=== PATIENT | male | born 1960 | race Hispanic/Latino ===

== ENCOUNTER → 2017-10-27 | Day surgery (SDC) | payer OTHER ==
[2017-10-26 10:56] LABS: BASOPHILS % 0.3 % (0.0-1.0); EOSINOPHILS # (AUTO) 0.1 (0.0-0.4); EOSINOPHILS % 0.5 % (0.0-6.0); HEMATOCRIT 38.7 % (38.2-49.6); HEMOGLOBIN 12.8 g/dL (14.0-18.0); LYMPHOCYTES % 19.6 % (18.0-39.1); MEAN CORPUSCULAR HEMOGLOBIN 31.3 pg (28-32); MEAN CORPUSCULAR HGB CONC 33.1 g/dL (31-35); MEAN CORPUSCULAR VOLUME 94.6 fL (81-99); MONOCYTES # (AUTO) 0.8 (0.2-0.8); MONOCYTES % 5.3 % (4.4-11.3); NEUTROPHILS # (AUTO) 11.1 (2.1-6.9); NEUTROPHILS % 73.1 % (38.7-80.0); PLATELET COUNT 209 x10e3/uL (140-360); RED BLOOD COUNT 4.09 x10e6/uL (4.3-5.7); RED CELL DISTRIBUTION WIDTH 13.7 % (11.7-14.4)
[2017-10-26 11:19] LABS: ALBUMIN 3.3 g/dL (3.5-5.0); ALBUMIN/GLOBULIN RATIO 0.8 (0.8-2.0); ANION GAP 16.7 mmol/L (8-16); CALCIUM 9.3 mg/dL (8.4-10.2); CHOL/HDL RATIO 6.6 (3.9-4.7); CREATININE, SERUM 2.27 mg/dL (0.72-1.25); POTASSIUM 4.7 mmol/L (3.5-5.1)
[~2017-10-27] VITALS: Ht 175.3 cm; Wt 136.1 kg
[~2017-10-27] MED LIST: AMLODIPINE BESYL5 MG PO; ASPIR 8181 MG PO; ATORVASTATIN CA20 MG PO; CARVEDILOL3.125 MG PO; CHANTIX1 MG PO; FENTANYL CITRATE/PF 100MCG/2 ML INJ ONE; FUROSEMIDE40 MG PO; GLIPIZIDE5 MG PO; HEPARIN SOD/SOD CHLORIDE 2,000 ML ONE; HYDROCHLOROTHIA25 MG PO; IOPAMIDOL 370 MG/ML 200 ML INFUS..BTL INJ ONE; LIDOCAINE HCL 2% LOCAL 20 ML VIAL ONE; LOSARTAN POTAS100 MG PO; METOLAZONE5 MG PO; MIDAZOLAM HCL 2 MG/2 ML VIAL ONE; PANTOPRAZOLE SO40 MG PO; POTASSIUM CHLO10 ME1 PO; PREDNISONE20 MG PO; SODIUM CHLORIDE 0.9% 1000ML 1,000 ML ONE; TRAZODONE HCL50 MG PO; VERAPAMIL HCL 2.5 MG/ML 2 ML VIAL ONE; VITAMIN B-121000 MCG PO
--- NOTE | 2017-10-27 19:49 | Operative Report ---
DATE OF PROCEDURE: October 27, 2017 PROCEDURE INDICATIONS: Dyspnea on exertion, anterior chest discomfort, NYHA functional class III, CCS III, abnormal stress test with impaired left ventricular systolic function. PROCEDURES PERFORMED 1. Left heart catheterization. 2. Coronary angiography times 2. 3. Limited dye protocol with 8 mL of dye total given for this angiogram, given the patient's history of chronic kidney disease. Intravenous fluids also provided pre and post procedure for adequate hydration. 4. Right radial TR band hemostasis. ESTIMATED BLOOD LOSS: 5 mL. PROCEDURE COMPLICATIONS: None. PROCEDURE SUMMARY: After consent was obtained, the patient was prepped and draped in a sterile fashion. The right radial site was locally infiltrated with 2% lidocaine. Access was obtained with a single anterior stick. A 5-Palestinian outer diameter Slender sheath was advanced over a wire. A universal 5-Palestinian TIG catheter was used for engagement of the left main, right coronary artery as well as across the aortic valve for hemodynamic measurements. The following findings were noted: 1. LV pressure was 108/9 with end-diastolic pressure of 20. 2. The aortic pressure was 104/76. 3. No left ventriculogram was performed. 4. Left main with 20% distal stenosis, large in caliber, gives an LAD and circumflex. 5. The LAD is large in caliber, has mid 30% stenosis, otherwise luminal irregularities throughout. It gives 2 diagonals and multiple septal perforators. 6. The circumflex has luminal irregularities. Two obtuse marginals are small in caliber. A medium-size 3rd obtuse marginal and a left posterolateral branch with luminal irregularities. 7. The right coronary artery is dominant with 30% mid stenosis at a proximal conus branch, 3 RV marginals in the mid portion, terminal RPDA of small caliber and RPLV of small caliber. CONCLUSIONS 1. Mild multivessel coronary artery disease. 2. Elevated left ventricular end-diastolic pressure. 3. Nonischemic cardiomyopathy. RECOMMENDATIONS 1. Weaning TR band. 2. Monitor renal function on follow up in 1 week. 3. Keep hydration. 4. Discontinue potassium supplementation and holiday of ARB times 2 days. 5. Heart failure management medical therapy. Job#: [id number]
== END | disposition home or self-care (01) ==
LOC: CATH LAB 08:33
PROVIDERS: ATTEND Internal Medicine Cardiovascular Disease
DX: I25.10 Atherosclerotic heart disease of native coronary artery without angina pectoris (principal); R94.39 Abnormal result of other cardiovascular function study; I42.8 Other cardiomyopathies; E78.5 Hyperlipidemia, unspecified; E11.69 Type 2 diabetes mellitus with other specified complication; E11.22 Type 2 diabetes mellitus with diabetic chronic kidney disease; I13.0 Hypertensive heart and chronic kidney disease with heart failure and stage 1 through stage 4 chronic kidney disease, or unspecified chronic kidney disease; N18.9 Chronic kidney disease, unspecified; I50.22 Chronic systolic (congestive) heart failure; E66.9 Obesity, unspecified; G47.33 Obstructive sleep apnea (adult) (pediatric); R60.0 Localized edema; Z01.810 Encounter for preprocedural cardiovascular examination; Z01.812 Encounter for preprocedural laboratory examination; Z68.42 Body mass index [BMI] 45.0-49.9, adult
CPT/HCPCS: 36415; 77002; 80053; 80061; 85025; 93005; 93458; C1887; J2001; J2250; J7030; Q9967; 36140

== ENCOUNTER → 2017-11-25 | Day surgery (SDC) | payer OTHER ==
[~2017-11-25] MED LIST changes: -FENTANYL CITRATE/PF 100MCG/2 ML INJ ONE; -HEPARIN SOD/SOD CHLORIDE 2,000 ML ONE; -IOPAMIDOL 370 MG/ML 200 ML INFUS..BTL INJ ONE; +KETAMINE HCL INJ 50 MG/ML 10 ML VIAL ONE; -LIDOCAINE HCL 2% LOCAL 20 ML VIAL ONE; +PROPOFOL IV EMULSION 10 MG/ML 50 ML VIAL ONE; +SOD PHOSPHATE/SOD BIPHOSPHATE ENEMA 132 ML BTL PR ONE; -SODIUM CHLORIDE 0.9% 1000ML 1,000 ML ONE; -VERAPAMIL HCL 2.5 MG/ML 2 ML VIAL ONE
== END | disposition home or self-care (01) ==
LOC: OR 05:53
PROVIDERS: ATTEND Internal Medicine Gastroenterology
DX: Z09 Encounter for follow-up examination after completed treatment for conditions other than malignant neoplasm (principal); D12.2 Benign neoplasm of ascending colon; D12.3 Benign neoplasm of transverse colon; D12.4 Benign neoplasm of descending colon; K57.30 Diverticulosis of large intestine without perforation or abscess without bleeding; K64.8 Other hemorrhoids; G47.33 Obstructive sleep apnea (adult) (pediatric); I10 Essential (primary) hypertension; E78.5 Hyperlipidemia, unspecified; E11.9 Type 2 diabetes mellitus without complications; F17.210 Nicotine dependence, cigarettes, uncomplicated; Z79.82 Long term (current) use of aspirin
CPT/HCPCS: 36415; 45385; 82948; 88305; J2250

== ENCOUNTER → 2019-01-12 | Day surgery (SDC) | payer OTHER ==
[~2019-01-12] MED LIST changes: +ALLOPURINOL100 MG PO; +FENTANYL CITRATE/PF 100MCG/2 ML INJ ONE; +INDOMETHACIN50 MG PO; -KETAMINE HCL INJ 50 MG/ML 10 ML VIAL ONE; -SOD PHOSPHATE/SOD BIPHOSPHATE ENEMA 132 ML BTL PR ONE; +SPIRONOLACTONE25 MG PO
--- OUTSIDE RECORDS SUMMARY | 2019-01-12 06:36 | XMS REPORT ---
Author Author [facility] Address Unknown Phone Unavailable Care Team Providers Care Program Eligibility Specialist Name Role Phone Salbador NGUYỄN Unavailable Unavailable Problems This patient has no known problems. Allergies, Adverse Reactions, Alerts This patient has no known allergies or adverse reactions. Medications This patient has no known medications. Results Test Description Test Time Test Comments Text Results Atomic Results Result Comments CHEST SINGLE (PORTABLE) [address] [address] Patient Name: DIXON CHRISTIANSEN MR #: [id number] : 1960 Age/Sex: 56/M Req #: [id number] Adm Physician: Ordered by: BALJEET NGUYỄN MD Report #: [id number] Location: ER Room/Bed: Procedure: [id number] DX/CHEST SINGLE (PORTABLE) Exam Date: 07/09/17 Exam Time: 2324 REPORT STATUS: Signed CHEST SINGLE (PORTABLE), 07/09/2017 11:02 PM Technique: CHEST SINGLE (PORTABLE) Comparison: None available. Clinical history: S LOWER EXT EDEMA, SOB, ?CHF S [id number] S 2324 Findings: See impression Impression: 1. Prominent cardiomediastinal silhouette likely accentuated by portable technique. Attention on upright PA and lateral when able. 2. Mild bilateral perihilar opacity which may be related to central vascular congestion. No significant effusion. Signed by: Dr Dung Oseguera MD on 07/10/2017 12:30 AM Dictated By: DUNG OSEGUERA MD Transcribed By: BOB on 07/10/1729 COPY TO: BALJEET NGUYỄN MD
[2019-01-12 08:13] LABS: BASOPHILS # (AUTO) 0.1 (0.0-0.1); BASOPHILS % 0.8 % (0.0-1.0); EOSINOPHILS # (AUTO) 0.3 (0.0-0.4); EOSINOPHILS % 2.3 % (0.0-6.0); HEMATOCRIT 43.5 % (38.2-49.6); HEMOGLOBIN 14.2 g/dL (14.0-18.0); LYMPHOCYTES # (AUTO) 4.1 (1.0-3.2); LYMPHOCYTES % 33.4 % (18.0-39.1); MEAN CORPUSCULAR HEMOGLOBIN 29.8 pg (28-32); MEAN CORPUSCULAR HGB CONC 32.6 g/dL (31-35); MEAN CORPUSCULAR VOLUME 91.2 fL (81-99); MONOCYTES # (AUTO) 0.8 (0.2-0.8); MONOCYTES % 6.9 % (4.4-11.3); NEUTROPHILS # (AUTO) 6.9 (2.1-6.9); NEUTROPHILS % 56.4 % (38.7-80.0); PLATELET COUNT 268 x10e3/uL (140-360); RED BLOOD COUNT 4.77 x10e6/uL (4.3-5.7); RED CELL DISTRIBUTION WIDTH 13.5 % (11.7-14.4)
[2019-01-12 10:00] VITALS: BP 123/67
== END | disposition home or self-care (01) ==
LOC: OR 06:32
PROVIDERS: ATTEND Internal Medicine Gastroenterology
DX: Z09 Encounter for follow-up examination after completed treatment for conditions other than malignant neoplasm (principal); D12.3 Benign neoplasm of transverse colon; K62.1 Rectal polyp; K64.8 Other hemorrhoids; Z71.3 Dietary counseling and surveillance; E11.9 Type 2 diabetes mellitus without complications; I10 Essential (primary) hypertension; E66.01 Morbid (severe) obesity due to excess calories; G47.33 Obstructive sleep apnea (adult) (pediatric); E78.5 Hyperlipidemia, unspecified; M10.9 Gout, unspecified; M54.9 Dorsalgia, unspecified; F17.210 Nicotine dependence, cigarettes, uncomplicated; Z79.84 Long term (current) use of oral hypoglycemic drugs; Z68.41 Body mass index [BMI] 40.0-44.9, adult
CPT/HCPCS: 36415; 45385; 82948; 85025; 93005; J2250; J2704; 45378

== ENCOUNTER 2019-08-27 08:41 | Emergency (ER) | payer OTHER ==
[~2019-08-27] VITALS: Ht 175.3 cm; Wt 136.1 kg
[~2019-08-27 08:41] MED LIST changes: -FENTANYL CITRATE/PF 100MCG/2 ML INJ ONE; -MIDAZOLAM HCL 2 MG/2 ML VIAL ONE; -PROPOFOL IV EMULSION 10 MG/ML 50 ML VIAL ONE
[2019-08-27] MEDS ORDERED: DEXAMETHASONE SOD PHOS 10 MG/1 ML VIAL IM NR (09:00)
== END 2019-08-27 09:21 | disposition home or self-care (01) ==
LOC: ER 08:41
DX: M25.561 Pain in right knee (principal); M10.061 Idiopathic gout, right knee; E11.9 Type 2 diabetes mellitus without complications; F17.210 Nicotine dependence, cigarettes, uncomplicated
CPT/HCPCS: 99282; J1100

== ENCOUNTER → 2021-07-10 | Day surgery (SDC) | payer OTHER ==
[~2021-07-10] MED LIST changes: +FARXIGA5 MG PO; +LIPITOR10 MG PO; +VIT C PO; +VIT D3 PO; +ZINC50 MG PO
[2021-07-10 08:25] VITALS: BP 129/81
== END | disposition home or self-care (01) ==
LOC: OR 06:10
PROVIDERS: ATTEND Internal Medicine Gastroenterology
DX: Z12.11 Encounter for screening for malignant neoplasm of colon (principal); D12.3 Benign neoplasm of transverse colon; D17.5 Benign lipomatous neoplasm of intra-abdominal organs; K57.30 Diverticulosis of large intestine without perforation or abscess without bleeding; K64.8 Other hemorrhoids; Z86.010 Personal history of colon polyps; K80.80 Other cholelithiasis without obstruction; I10 Essential (primary) hypertension; E66.01 Morbid (severe) obesity due to excess calories; Z68.41 Body mass index [BMI] 40.0-44.9, adult; F17.210 Nicotine dependence, cigarettes, uncomplicated; K21.9 Gastro-esophageal reflux disease without esophagitis; E11.9 Type 2 diabetes mellitus without complications; G47.33 Obstructive sleep apnea (adult) (pediatric); E78.5 Hyperlipidemia, unspecified; Z01.810 Encounter for preprocedural cardiovascular examination; Z01.812 Encounter for preprocedural laboratory examination; Z20.822 Contact with and (suspected) exposure to COVID-19; Z79.84 Long term (current) use of oral hypoglycemic drugs
CPT/HCPCS: 36415; 45385; 82948; 93005; U0002; 45378; 45380